=== PATIENT | female | born 1975 | race Caucasian/White ===

== ENCOUNTER 2017-01-19 08:06 | Emergency (ER) | payer BC ==
[~2017-01-19] VITALS: Ht 157.5 cm; Wt 63.2 kg
[~2017-01-19 08:06] MED LIST: AMBIEN5 MG PO; ATARAX,VISTARIL25 MG PO; CARBAMAZEPINE100 MG PO; COLLAGEN PLUS1 EACH PO; DOCUSATE SODIU100 MG PO; DOXEPIN HCL10 MG PO; FISH OIL500 MG PO; GABAPENTIN300 MG PO; GABAPENTIN400 MG PO; GABAPENTIN600 MG PO; GEODON40 MG PO; GEODON80 MG PO; GREEN TEA1 CAPSULE PO; HALDOL5 MG PO; HYDROXYZINE HCL25 MG PO; IBUPROFEN200 M1 PO; KEFLEX500 MG PO; LEVOTHYROXINE50 MCG PO; LITHIUM CARBON300 M1 PO; LITHIUM CARBON300 M2 PO; LITHIUM CARBON300 MG PO; LITHOBID300 MG PO; MOBIC15 MG PO; MOTRIN600 MG PO; NEURONTIN300 MG PO; NEURONTIN600 MG PO; PERPHENAZINE4 MG PO; RANITIDINE HCL150 MG PO; RISPERDAL M-TAB4 MG PO; RISPERDAL1 MG PO; RISPERDAL2 MG PO; ROPINIROLE HCL1 MG PO; SKELAXIN800 MG PO; SYNTHROID75 MCG PO; TEGRETOL-XR,CA100 MG PO; UNISOM SLEEP AI25 MG PO; VISTARIL50 MG PO; ZANTAC150 MG PO; ZANTAC75 M1 PO; ZIPRASIDONE HCL20 MG PO; ZIPRASIDONE HCL80 MG PO
[2017-01-19 08:08] VITALS: BP 138/91
[2017-01-19] MEDS ORDERED: NAPROSYN500 MG PO (11:57)
[2017-01-19] MEDS ORDERED: BENTYL20 MG PO (11:57)
== END 2017-01-19 12:58 | disposition home or self-care (01) ==
LOC: EME 08:06
DX: R10.9 Unspecified abdominal pain (principal)
CPT/HCPCS: 74000; 99281; 99283

== ENCOUNTER 2017-01-29 18:01 | Emergency (ER) | payer BC ==
[~2017-01-29] VITALS: Ht 157.5 cm; Wt 64.4 kg
[~2017-01-29 18:01] MED LIST changes: +BENTYL20 MG PO; +NAPROSYN500 MG PO
[2017-01-29] MEDS ORDERED: NEURONTIN600 MG PO (19:34)
[2017-01-29] MEDS ORDERED: ZANTAC150 MG PO (19:34)
[2017-01-29] MEDS ORDERED: RISPERDAL1 MG PO (19:34)
[2017-01-29] MEDS ORDERED: IMITREX50 MG PO (19:34)
[2017-01-29] MEDS ORDERED: THORAZINE50 MG PO (19:34)
[2017-01-29] MEDS ORDERED: TEGRETOL200 MG PO (19:34)
[2017-01-29 19:49] VITALS: BP 127/95
== END 2017-01-29 19:50 | disposition home or self-care (01) ==
LOC: EXP 18:01 → EME 18:01 → EXP 19:50
DX: F31.9 Bipolar disorder, unspecified (principal); Z76.0 Encounter for issue of repeat prescription; F17.200 Nicotine dependence, unspecified, uncomplicated
CPT/HCPCS: 99281; 99283

== ENCOUNTER 2017-04-19 15:59 | Inpatient (IN) | payer OTHER ==
[~2017-04-19] VITALS: Ht 157.5 cm; Wt 66.2 kg
[~2017-04-19 15:59] MED LIST changes: +IMITREX50 MG PO; +TEGRETOL200 MG PO; +THORAZINE50 MG PO
[2017-04-19 17:16] LABS: HEMATOCRIT 44.2 % (36.0-46.0); MCH 31.7 PG (29.0-34.0); MCHC 34.2 G/DL (30.0-36.0); MCV 92.9 FL (83-99); MEAN PLAT.VOLUME 9.4 uM^3 (9.5-12.4); PLATELET COUNT 236 K/uL (156-360); RBC DIS.WIDTH-CV 11.9 % (11.8-14.6); RBC DIS.WIDTH-SD 41.3 % (39-53); RED BLOOD COUNT 4.76 M/uL (3.80-5.20); WHITE BLOOD COUNT 7.5 K/uL (4.1-10.2)
[2017-04-19 17:26] LABS: CHLORIDE 108 mEq/L (99-109); POTASSIUM 3.6 mEq/L (3.7-5.4); SODIUM 142 mEq/L (136-147)
[2017-04-19 17:28] LABS: GLUCOSE 104 mg/dL (70-99)
[2017-04-19 17:29] LABS: ANION GAP 18 MEQ/L (2-14)
[2017-04-19 17:31] LABS: SERUM ETHYL ALCOHOL < 10 mg/dL
[2017-04-19 17:32] LABS: GFR ESTIMATE (CALCULATED) > 59 mL/min/
[2017-04-19 17:33] LABS: UREA NITROGEN (BUN) 8 mg/dL (9-23)
[2017-04-19 21:25] LABS: AMPHETAMINE NEGATIVE (500 ng/mL); BARBITURATES NEGATIVE (200 ng/mL); BENZODIAZEPINES NEGATIVE (150 ng/mL); COCAINE NEGATIVE (150 ng/mL); INTERNAL CONTROLS VALID? YES; METHADONE NEGATIVE (200 ng/mL); METHAMPHETAMINE NEGATIVE (500 ng/mL); OPIATES (MORPHINE) NEGATIVE (100 ng/mL); OXYCODONE NEGATIVE (100 ng/mL); PHENCYCLIDINE NEGATIVE (25 ng/mL); PROPOXYPHENE NEGATIVE (300 ng/mL); THC CANNABINOIDS NEGATIVE (50 ng/mL); TRICYCLIC ANTIDEPRESSANTS NEGATIVE (300 ng/mL)
[2017-04-19] MEDS ORDERED: TEGRETOL200 MG PO (22:59)
[2017-04-19] MEDS ORDERED: IMITREX100 MG PO (22:59)
[2017-04-20 00:44] VITALS: BP 100/64
[2017-04-20 08:12] VITALS: BP 99/54
[2017-04-20 15:30] VITALS: BP 103/60
[2017-04-21 07:24] VITALS: BP 103/63
[2017-04-21 15:43] VITALS: BP 110/60
[2017-04-22 08:01] VITALS: BP 106/57
[2017-04-22 15:43] VITALS: BP 116/69
[2017-04-23 08:30] VITALS: BP 112/58
[2017-04-23 15:33] VITALS: BP 130/92
[2017-04-24 07:57] VITALS: BP 104/65
[2017-04-24 16:28] VITALS: BP 100/56
[2017-04-25 09:13] VITALS: BP 118/73
[2017-04-25 17:01] VITALS: BP 123/73
[2017-04-26 07:56] VITALS: BP 98/63
[2017-04-26] MEDS ORDERED: THORAZINE50 MG PO (10:22)
[2017-04-26] MEDS ORDERED: AMOXICILLIN500 MG PO (10:22)
[2017-04-26] MEDS ORDERED: OXCARBAZEPINE300 MG PO (10:23)
== END 2017-04-26 11:04 | disposition home or self-care (01) | DRG 885 ==
LOC: EME 15:59 → 1WEST 22:20 → EDOF 22:20 → ENRESERV 04-20 00:37 → 1WEST 04-20 00:38
DX: F25.1 Schizoaffective disorder, depressive type (principal); G43.909 Migraine, unspecified, not intractable, without status migrainosus; R51 Headache; F17.200 Nicotine dependence, unspecified, uncomplicated; Z81.8 Family history of other mental and behavioral disorders
CPT/HCPCS: 80048; 85027; 90839; 97150 GO; 99281; 99285; G0480; J2794; Q0177

== ENCOUNTER 2017-07-10 23:42 | Emergency (ER) | payer BC, OTHER ==
[~2017-07-10] VITALS: Ht 157.5 cm; Wt 64.2 kg
[~2017-07-10 23:42] MED LIST changes: +AMOXICILLIN500 MG PO; +IMITREX100 MG PO; +OXCARBAZEPINE300 MG PO
[2017-07-11 01:30] VITALS: BP 129/89
== END 2017-07-11 01:38 | disposition home or self-care (01) ==
LOC: EME 23:42
DX: S90.32XA Contusion of left foot, initial encounter (principal); W20.8XXA Other cause of strike by thrown, projected or falling object, initial encounter; F17.200 Nicotine dependence, unspecified, uncomplicated
CPT/HCPCS: 73630; 99281; 99283

== ENCOUNTER 2018-01-23 22:10 | Inpatient (IN) | payer OTHER ==
[~2018-01-23] VITALS: Ht 157.5 cm; Wt 68.5 kg
[~2018-01-23 22:10] MED LIST changes: +ULTRACET1 TABLET PO
[2018-01-24 00:11] LABS: HEMATOCRIT 39.3 % (36.0-46.0); HEMOGLOBIN 13.2 G/DL (11.9-15.5); MCH 31.3 PG (29.0-34.0); MCHC 33.6 G/DL (30.0-36.0); MCV 93.1 FL (83-99); PLATELET COUNT 280 K/uL (156-360); RBC DIS.WIDTH-CV 11.8 % (11.8-14.6); RBC DIS.WIDTH-SD 40.1 % (39-53); RED BLOOD COUNT 4.22 M/uL (3.80-5.20); WHITE BLOOD COUNT 10.4 K/uL (4.1-10.2)
[2018-01-24 00:21] LABS: CHLORIDE 105 mEq/L (99-109); POTASSIUM 3.6 mEq/L (3.7-5.4); SODIUM 141 mEq/L (136-147)
[2018-01-24 00:22] LABS: GLUCOSE 70 mg/dL (70-99)
[2018-01-24 00:26] LABS: CREATININE 0.8 mg/dL (0.6-1.3); GFR ESTIMATE (CALCULATED) > 59 mL/min/; SERUM ETHYL ALCOHOL < 10 mg/dL
[2018-01-24 00:27] LABS: UREA NITROGEN (BUN) 7 mg/dL (9-23)
[2018-01-24] MEDS ORDERED: HALDOL PO (01:42)
[2018-01-24] MEDS ORDERED: GABAPENTIN600 MG PO (01:46)
[2018-01-24] MEDS ORDERED: LATUDA80 MG PO (02:23)
[2018-01-24] MEDS ORDERED: RISPERDAL25 MG/2 ML IM (02:24)
[2018-01-24] MEDS ORDERED: HALDOL2 MG PO (02:25)
[2018-01-24] MEDS ORDERED: COGENTIN0.5 MG PO (02:27)
[2018-01-24] MEDS ORDERED: OXCARBAZEPINE300 MG PO (02:28)
[2018-01-24 02:56] VITALS: BP 147/93
[2018-01-24 03:00] VITALS: BP 147/93
[2018-01-24 03:11] LABS: AMPHETAMINE NEGATIVE (500 ng/mL); BARBITURATES NEGATIVE (200 ng/mL); BENZODIAZEPINES NEGATIVE (150 ng/mL); BUPRENORPHINE NEGATIVE (10 ng/mL); COCAINE NEGATIVE (150 ng/mL); METHADONE NEGATIVE (200 ng/mL); METHAMPHETAMINE NEGATIVE (500 ng/mL); OPIATES (MORPHINE) NEGATIVE (100 ng/mL); OXYCODONE NEGATIVE (100 ng/mL); PHENCYCLIDINE NEGATIVE (25 ng/mL); PROPOXYPHENE NEGATIVE (300 ng/mL); THC CANNABINOIDS NEGATIVE (50 ng/mL); TRICYCLIC ANTIDEPRESSANTS NEGATIVE (300 ng/mL)
[2018-01-24 07:50] VITALS: BP 127/80
[2018-01-25 07:35] VITALS: BP 113/69
[2018-01-25 15:59] VITALS: BP 116/80
[2018-01-26 07:56] VITALS: BP 93/63
[2018-01-26 16:02] VITALS: BP 149/88
[2018-01-26 18:44] LABS: C DIFF TOXIN NEGATIVE (NEGATIVE)
[2018-01-26 23:43] VITALS: BP 123/85
[2018-01-27 08:17] VITALS: BP 99/51
[2018-01-27 16:58] VITALS: BP 116/80
[2018-01-28 09:14] VITALS: BP 108/63
[2018-01-28 16:29] VITALS: BP 140/65
[2018-01-29 07:49] VITALS: BP 104/67
[2018-01-29 15:19] VITALS: BP 105/57
[2018-01-30 07:41] VITALS: BP 79/43
[2018-01-30 08:55] VITALS: BP 92/62
[2018-01-30 15:45] VITALS: BP 11/57; BP 111/57
[2018-01-31 08:08] VITALS: BP 84/45
[2018-01-31 16:16] VITALS: BP 93/50
[2018-02-01 07:55] VITALS: BP 99/60
[2018-02-01 16:35] VITALS: BP 120/78
[2018-02-02 07:48] VITALS: BP 117/59
[2018-02-02 17:08] VITALS: BP 121/57
[2018-02-03 08:04] VITALS: BP 91/51
[2018-02-03] MEDS ORDERED: FLUPHENAZINE HCL1 MG PO (09:31)
[2018-02-03] MEDS ORDERED: DIVALPROEX SOD500 M1 PO (09:31)
[2018-02-03] MEDS ORDERED: FLUPHENAZI IM (11:13)
== END 2018-02-03 11:33 | disposition home or self-care (01) | DRG 885 ==
LOC: EME 22:10 → 1WEST 01-24 01:08 → EDOF 01-24 01:08 → 1WEST 01-24 01:08 → ENRESERV 01-24 02:11 → 1WEST 01-24 02:53
PROVIDERS: Psychiatry & Neurology Psychiatry
DX: F25.0 Schizoaffective disorder, bipolar type (principal); R45.850 Homicidal ideations; G47.10 Hypersomnia, unspecified; F17.200 Nicotine dependence, unspecified, uncomplicated; G25.81 Restless legs syndrome; G43.909 Migraine, unspecified, not intractable, without status migrainosus; S01.81XA Laceration without foreign body of other part of head, initial encounter; W22.01XA Walked into wall, initial encounter; Z81.8 Family history of other mental and behavioral disorders; Z91.14 Patient's other noncompliance with medication regimen
CPT/HCPCS: 80048; 85027; 87493; 87506; 90839; 97150 GO; 97166 GO; 99281; 99285; G0480; J1200; J2680; J2794; J3486; Q0161; Q0177

== ENCOUNTER 2018-02-08 20:27 | Inpatient (IN) | payer OTHER ==
[~2018-02-08] VITALS: Ht 154.9 cm; Wt 71.0 kg
[~2018-02-08 20:27] MED LIST changes: +COGENTIN0.5 MG PO; +DIVALPROEX SOD500 M1 PO; +FLUPHENAZI IM; +FLUPHENAZINE HCL1 MG PO; +HALDOL PO; +HALDOL2 MG PO; +LATUDA80 MG PO; +RISPERDAL25 MG/2 ML IM
[2018-02-08 21:12] LABS: HEMATOCRIT 37.9 % (36.0-46.0); HEMOGLOBIN 12.9 G/DL (11.9-15.5); MCH 31.5 PG (29.0-34.0); MCV 92.4 FL (83-99); PLATELET COUNT 233 K/uL (156-360); RBC DIS.WIDTH-CV 11.9 % (11.8-14.6); RBC DIS.WIDTH-SD 40.5 % (39-53); WHITE BLOOD COUNT 6.3 K/uL (4.1-10.2)
[2018-02-08 21:28] LABS: CHLORIDE 103 mEq/L (99-109)
[2018-02-08 21:29] LABS: SODIUM 140 mEq/L (136-147)
[2018-02-08 21:30] LABS: GLUCOSE 94 mg/dL (70-99)
[2018-02-08 21:33] LABS: SERUM ETHYL ALCOHOL < 10 mg/dL
[2018-02-08 21:34] LABS: CREATININE 0.7 mg/dL (0.6-1.3); GFR ESTIMATE (CALCULATED) > 59 mL/min/
[2018-02-08 21:36] LABS: UREA NITROGEN (BUN) 11 mg/dL (9-23)
[2018-02-08 21:37] LABS: SALICYLATE < 5.0 MG/DL (15-30)
[2018-02-08 21:38] LABS: ACETAMINOPHEN (TYLENOL) < 10 mcg/mL (10-30)
[2018-02-09 04:29] LABS: AMPHETAMINE NEGATIVE (500 ng/mL); BARBITURATES NEGATIVE (200 ng/mL); BENZODIAZEPINES NEGATIVE (150 ng/mL); COCAINE NEGATIVE (150 ng/mL); METHADONE NEGATIVE (200 ng/mL); METHAMPHETAMINE NEGATIVE (500 ng/mL); OPIATES (MORPHINE) NEGATIVE (100 ng/mL); OXYCODONE NEGATIVE (100 ng/mL); PHENCYCLIDINE NEGATIVE (25 ng/mL); PROPOXYPHENE NEGATIVE (300 ng/mL); THC CANNABINOIDS NEGATIVE (50 ng/mL); TRICYCLIC ANTIDEPRESSANTS NEGATIVE (300 ng/mL)
[2018-02-09 04:30] LABS: BUPRENORPHINE NEGATIVE (10 ng/mL)
[2018-02-09 05:06] VITALS: BP 134/91
[2018-02-09 07:57] VITALS: BP 129/70
[2018-02-09 16:05] VITALS: BP 104/66
[2018-02-10 08:04] VITALS: BP 100/58
[2018-02-10 08:48] LABS: BASOPHIL (%) 0.5 % (0-1); EOSINOPHIL (%) 1.8 % (0-5); EOSINOPHIL COUNT 0.1 K/uL (0-0.3); HEMOGLOBIN 12.7 G/DL (11.9-15.5); IMMATURE GRANULOCYTE (%) 0.6 % (0.0-0.7); LYMPHOCYTE (%) 27.8 % (15-42); LYMPHOCYTE COUNT 1.7 K/uL (1.0-2.8); MCH 30.6 PG (29.0-34.0); MCHC 32.6 G/DL (30.0-36.0); MONOCYTE (%) 7.7 % (3-12); MONOCYTE COUNT 0.5 K/uL (0-0.8); NEUTROPHIL (%) 61.6 % (45-76); NEUTROPHIL COUNT 3.8 K/uL (1.8-6.4); PLATELET COUNT 204 K/uL (156-360); RBC DIS.WIDTH-CV 11.9 % (11.8-14.6); RBC DIS.WIDTH-SD 41.3 % (39-53); RED BLOOD COUNT 4.15 M/uL (3.80-5.20); WHITE BLOOD COUNT 6.2 K/uL (4.1-10.2)
[2018-02-10 11:36] LABS: ALBUMIN 3.8 G/DL (3.2-4.8); ALKALINE PHOSPHATASE 99 IU/L (3-129); ALT (GPT) 17 IU/L (3-49); AST (GOT) 12 IU/L (2-34); CHLORIDE 106 MEQ/L (99-109); CREATININE 0.7 MG/DL (0.6-1.3); GFR ESTIMATE (CALCULATED) > 59 mL/min/; GLUCOSE 98 mg/dL (70-99); POTASSIUM 4.3 MEQ/L (3.7-5.4); SODIUM 139 MEQ/L (136-147); TOTAL BILIRUBIN 0.3 MG/DL (0.0-1.0); TOTAL PROTEIN 5.8 G/DL (6.4-8.3); UREA NITROGEN (BUN) 14 mg/dL (9-23)
[2018-02-10 16:32] VITALS: BP 132/68
[2018-02-11 08:03] VITALS: BP 95/62
[2018-02-11 14:40] VITALS: BP 109/74
[2018-02-12 07:33] VITALS: BP 93/55
[2018-02-12 15:14] VITALS: BP 109/70
[2018-02-13 07:39] VITALS: BP 86/53
[2018-02-13 15:14] VITALS: BP 109/72
[2018-02-14 08:08] VITALS: BP 94/59
[2018-02-14 16:04] VITALS: BP 114/74
[2018-02-15 08:01] VITALS: BP 99/57
[2018-02-15 16:21] VITALS: BP 108/82
[2018-02-16 07:54] VITALS: BP 89/55
[2018-02-16 16:26] VITALS: BP 101/55
[2018-02-16 21:30] VITALS: BP 132/78
[2018-02-17 09:55] VITALS: BP 90/55
[2018-02-17 10:01] LABS: BASOPHIL (%) 0.8 % (0-1); BASOPHIL COUNT 0.1 K/uL (0-0.1); EOSINOPHIL (%) 2.7 % (0-5); EOSINOPHIL COUNT 0.2 K/uL (0-0.3); HEMATOCRIT 38.8 % (36.0-46.0); HEMOGLOBIN 12.7 G/DL (11.9-15.5); IMMATURE GRANULOCYTE (%) 1.8 % (0.0-0.7); LYMPHOCYTE COUNT 1.6 K/uL (1.0-2.8); MCH 30.4 PG (29.0-34.0); MCHC 32.7 G/DL (30.0-36.0); MCV 92.8 FL (83-99); MONOCYTE (%) 9.1 % (3-12); MONOCYTE COUNT 0.6 K/uL (0-0.8); NEUTROPHIL (%) 59.6 % (45-76); NEUTROPHIL COUNT 3.7 K/uL (1.8-6.4); PLATELET COUNT 209 K/uL (156-360); RBC DIS.WIDTH-CV 11.9 % (11.8-14.6); RBC DIS.WIDTH-SD 41.1 % (39-53); RED BLOOD COUNT 4.18 M/uL (3.80-5.20); WHITE BLOOD COUNT 6.2 K/uL (4.1-10.2)
[2018-02-17 16:48] VITALS: BP 102/61
[2018-02-18 08:06] VITALS: BP 92/55
[2018-02-18 16:17] VITALS: BP 91/57
[2018-02-18 20:14] VITALS: BP 113/65
[2018-02-19 07:25] VITALS: BP 88/52
[2018-02-19 16:57] VITALS: BP 118/79
[2018-02-20 08:36] VITALS: BP 89/54
[2018-02-20 16:49] VITALS: BP 100/62
[2018-02-21 07:58] VITALS: BP 93/52
[2018-02-21 16:45] VITALS: BP 103/55
[2018-02-22 08:16] VITALS: BP 94/67
[2018-02-22 16:10] VITALS: BP 125/84
[2018-02-23 08:03] VITALS: BP 109/60
[2018-02-23 16:19] VITALS: BP 133/80
[2018-02-24 08:23] VITALS: BP 142/95
[2018-02-24 08:46] LABS: BASOPHIL (%) 1.2 % (0-1); BASOPHIL COUNT 0.1 K/uL (0-0.1); EOSINOPHIL (%) 1.2 % (0-5); EOSINOPHIL COUNT 0.1 K/uL (0-0.3); HEMATOCRIT 39.2 % (36.0-46.0); HEMOGLOBIN 13.6 G/DL (11.9-15.5); IMMATURE GRANULOCYTE (%) 4.1 % (0.0-0.7); MCH 31.1 PG (29.0-34.0); MCHC 34.7 G/DL (30.0-36.0); MCV 89.7 FL (83-99); MONOCYTE (%) 6.9 % (3-12); MONOCYTE COUNT 0.7 K/uL (0-0.8); NEUTROPHIL (%) 66.6 % (45-76); NEUTROPHIL COUNT 6.7 K/uL (1.8-6.4); PLATELET COUNT 216 K/uL (156-360); RBC DIS.WIDTH-SD 39.8 % (39-53); RED BLOOD COUNT 4.37 M/uL (3.80-5.20)
[2018-02-24 15:21] VITALS: BP 129/79
[2018-02-25 08:06] VITALS: BP 117/66
[2018-02-25 17:05] VITALS: BP 107/72
[2018-02-26 07:45] VITALS: BP 100/68
[2018-02-26 14:59] VITALS: BP 107/64
[2018-02-27 07:36] VITALS: BP 109/73
[2018-02-27 15:15] VITALS: BP 128/82
[2018-02-28 07:52] VITALS: BP 105/66
[2018-02-28 16:23] VITALS: BP 99/62
[2018-03-01 07:35] VITALS: BP 115/78
[2018-03-01 16:12] VITALS: BP 117/78
[2018-03-02 07:44] VITALS: BP 112/70
[2018-03-02 16:33] VITALS: BP 103/66
[2018-03-03 07:46] LABS: BASOPHIL (%) 0.8 % (0-1); BASOPHIL COUNT 0.1 K/uL (0-0.1); EOSINOPHIL (%) 2.4 % (0-5); EOSINOPHIL COUNT 0.2 K/uL (0-0.3); HEMATOCRIT 41.9 % (36.0-46.0); HEMOGLOBIN 14.1 G/DL (11.9-15.5); IMMATURE GRANULOCYTE (%) 1.8 % (0.0-0.7); LYMPHOCYTE COUNT 1.6 K/uL (1.0-2.8); MCH 30.6 PG (29.0-34.0); MCHC 33.7 G/DL (30.0-36.0); MCV 90.9 FL (83-99); MONOCYTE COUNT 0.6 K/uL (0-0.8); NEUTROPHIL COUNT 5.2 K/uL (1.8-6.4); PLATELET COUNT 200 K/uL (156-360); RBC DIS.WIDTH-CV 12.3 % (11.8-14.6); RBC DIS.WIDTH-SD 40.6 % (39-53); RED BLOOD COUNT 4.61 M/uL (3.80-5.20); WHITE BLOOD COUNT 7.8 K/uL (4.1-10.2)
[2018-03-03 08:04] VITALS: BP 131/86
[2018-03-03 16:15] VITALS: BP 112/85
[2018-03-04 07:54] VITALS: BP 108/72
[2018-03-04 16:24] VITALS: BP 118/84
[2018-03-05 08:32] VITALS: BP 111/65
[2018-03-05 15:58] VITALS: BP 108/66
[2018-03-06 08:25] VITALS: BP 107/71
[2018-03-06 16:47] VITALS: BP 105/65
[2018-03-07] MEDS ORDERED: PRAZOSIN HCL1 MG PO (14:46)
[2018-03-07] MEDS ORDERED: CLOZARIL100 MG PO (14:46)
[2018-03-07] MEDS ORDERED: PROMETHAZINE HC25 M1 PO (14:46)
[2018-03-07] MEDS ORDERED: RANITIDINE15 MG/1 ML PO (14:46)
[2018-03-07] MEDS ORDERED: ROPINIROLE HCL0.5 MG PO (14:46)
[2018-03-07] MEDS ORDERED: CLOZAPINE100 MG PO (14:46)
[2018-03-08 14:22] LABS: Clozapine 957 mcg/L (()); Norclozapine 449 mcg/L (25-400)
== END 2018-03-07 15:18 | disposition home or self-care (01) | DRG 885 ==
LOC: EME → EDBD 20:27 → EDOF 02-09 02:29 → 1WEST 02-09 02:29 → ENRESERV 02-09 04:11 → 1WEST 02-09 04:29
PROVIDERS: Emergency Medicine; Psychiatry & Neurology Psychiatry
DX: F25.0 Schizoaffective disorder, bipolar type (principal); F23 Brief psychotic disorder; F17.210 Nicotine dependence, cigarettes, uncomplicated; F41.9 Anxiety disorder, unspecified; K11.7 Disturbances of salivary secretion; D70.9 Neutropenia, unspecified; R45.1 Restlessness and agitation; R41.82 Altered mental status, unspecified; K04.7 Periapical abscess without sinus; Z91.14 Patient's other noncompliance with medication regimen; Z72.820 Sleep deprivation; Z81.8 Family history of other mental and behavioral disorders
CPT/HCPCS: 70450; 80048; 80053; 80159 90; 82948; 85025; 85027; 90837; 93005; 97150 GO; 97166 GO; 99281; 99285; G0480; Q0169